=== PATIENT | female | born 1985 | race Caucasian/White ===

== ENCOUNTER 2017-04-25 19:41 | Emergency (ER) | payer OTHER ==
[2017-04-25 20:17] VITALS: BP 144/89
--- NOTE | 2017-04-25 20:57 | UC ---
Throat Pain/Nasal Felipe HPI - HPI Summary HPI Summary: TWO WEEKS OF SORE THROAT, SINUS CONGESTION, MILD TONGUE SWELLING. NO FEVER. - History of Current Complaint Chief Complaint: UCRespiratory Stated Complaint: sore throat Time Seen by Provider: 04/25/17 20:21 Hx Obtained From: Patient, Family/Skating [employer] Hx Last Menstrual Period: 03/31/17 Onset/Duration: Gradual Onset, Lasting Weeks, Still Present Severity: Mild Cough: None Associated Signs & Symptoms: Positive: Hoarseness, Sinus Discomfort, Nasal Discharge - Epiglottits Risk Factors Epiglottis Risk Factors: Negative - Allergies/Home Medications Allergies/Adverse Reactions: Allergies Allergy/AdvReac Type Severity Reaction Status Date / Time Penicillins Allergy Hives Verified 04/25/17 20:18 Sulfa Drugs Allergy severe Verified 04/25/17 20:18 vomiting, stomach pain Home Medications: Home Medications Venlafaxine TAB (NF) [Effexor TAB (NF)] 150 mg PO QAM 04/25/17 [History Confirmed 04/25/17] buPROPion TAB* [Wellbutrin TAB*] 150 mg PO QAM 04/25/17 [History Confirmed 04/25] PMH/Surg Hx/FS Hx/Imm Hx Previously Healthy: Yes Endocrine History Of: Denies: Diabetes Cardiovascular History Of: Denies: Cardiac Disorders Respiratory History Of: Reports: Asthma - PRN INHALER- UNKNOWN - Surgical History Surgical History: Yes Surgery Procedure, Year, and Place: C sections x 3; left great toe x 6. right inguinal hernia; left wrist 2010 and 2013 - Family History Known Family History: Positive: Hypertension - FATHER Negative: Diabetes - Social History Occupation: Employed Full-time Lives: With Family Alcohol Use: Occasionally Substance Use Type: None, Excessive Caffeine Smoking Status (MU): Heavy Every Day Tobacco Smoker Type: Cigarettes Amount Used/How Often: 1 PPD Length of Time of Smoking/Using Tobacco: 18 Years Have You Smoked in the Last Year: Yes Household Exposure Type: Cigarettes Cessation Counseling: Patient Advised to Stop - Immunization History Most Recent Influenza Vaccination: Not the 2013/2014 Review of Systems Constitutional: Negative Skin: Negative Eyes: Negative ENT: Sore Throat, Nasal Discharge Respiratory: Negative Cardiovascular: Negative Gastrointestinal: Negative Genitourinary: Negative Motor: Negative Neurovascular: Negative Musculoskeletal: Negative Neurological: Negative Psychological: Negative All Other Systems Reviewed And Are Negative: Yes Physical Exam Triage Information Reviewed: Yes Appearance: Well-Appearing, No Pain Distress, Well-Nourished Vital Signs: Initial Vital Signs Temp 98 F 04/25/17 20:09 Pulse 85 04/25/17 20:09 Resp 18 04/25/17 20:09 BP 144/89 04/25/17 20:09 Vital Signs Reviewed: Yes Eye Exam: Normal ENT: Positive: Hearing grossly normal, Pharyngeal erythema, Nasal congestion, TMs normal Dental Exam: Normal Neck exam: Normal Neck: Positive: Supple, Nontender, No Lymphadenopathy Respiratory Exam: Normal Respiratory: Positive: Chest non-tender, Lungs clear, Normal breath sounds, No respiratory distress, No accessory muscle use Cardiovascular Exam: Normal Cardiovascular: Positive: RRR, No Murmur, Pulses Normal, Brisk Capillary Refill Abdominal Exam: Normal Musculoskeletal Exam: Normal Neurological Exam: Normal Psychological Exam: Normal Skin Exam: Normal Throat Pain/Nasal Course/Dx - Differential Dx/Diagnosis Differential Diagnosis/HQI/PQRI: Pharyngitis, Sinusitis, Tonsillitis, URI Provider Diagnoses: RHINOSINUSITIS; PHARYNGITIS Discharge - Discharge Plan Condition: Stable Disposition: HOME Prescriptions: Fluticasone NASAL SPRAY 50MCG* [Flonase NASAL SPRAY 50MCG*] 2 spray BOTH NARES DAILY #1 btl Patient Education Materials: Pharyngitis (ED), Upper Respiratory Infection (ED) , Rhinosinusitis (ED) Referrals: Luisana Kaminski NP [Primary Care Provider] -
== END 2017-04-25 20:58 | disposition home or self-care (01) ==
LOC: UCCORT 19:41
DX: J32.9 Chronic sinusitis, unspecified (principal); F17.210 Nicotine dependence, cigarettes, uncomplicated; Z88.1 Allergy status to other antibiotic agents; Z88.2 Allergy status to sulfonamides
CPT/HCPCS: 87651; 99212; G0463

== ENCOUNTER 2019-06-27 11:33 | Emergency (ER) | payer OTHER ==
[2019-06-27 11:44] VITALS: BP 142/83
--- NOTE | 2019-06-27 12:13 | UC ---
Lower Extremity/Ankle HPI - HPI Summary HPI Summary: fell down the pool stairs yesterday hitting heel on every step---today unable to wb on left foot and pain in heel - History of Current Complaint Chief Complaint: UCLowerExtremity Stated Complaint: LEFT FOOT INJURY Time Seen by Provider: 06/27/19 12:07 Hx Obtained From: Patient Hx Last Menstrual Period: 06/14/19 ?: No Onset/Duration: Sudden Onset, Lasting Days - 1, Still Present Pain Intensity: 8 Pain Scale Used: 0-10 Numeric Aggravating Factor(s): Standing, Ambulation Alleviating Factor(s): Rest Able to Bear Weight: No - Allergies/Home Medications Allergies/Adverse Reactions: Allergies Allergy/AdvReac Type Severity Reaction Status Date / Time Penicillins Allergy Hives Verified 06/27/19 11:44 Sulfa (Sulfonamide Allergy Abdominal Verified 06/27/19 11:44 Antibiotics) Pain Home Medications: Home Medications Ibuprofen 800 mg PO 06/27/19 [History] PMH/Surg Hx/FS Hx/Imm Hx Previously Healthy: Yes - Surgical History Surgical History: Yes Surgery Procedure, Year, and Place: C sections x 3; left great toe x 6. right inguinal hernia; left wrist 2010 and 2013 - Family History Known Family History: Positive: Hypertension - FATHER Negative: Diabetes - Social History Occupation: Employed Full-time Lives: With Family Alcohol Use: Occasionally Substance Use Type: None Smoking Status (MU): Heavy Every Day Tobacco Smoker Type: Cigarettes Amount Used/How Often: 1 PPD Length of Time of Smoking/Using Tobacco: 18 Years Have You Smoked in the Last Year: Yes Household Exposure Type: Cigarettes - Immunization History Most Recent Influenza Vaccination: Not the Review of Systems All Other Systems Reviewed And Are Negative: Yes Constitutional: Positive: Negative Skin: Positive: Negative Eyes: Positive: Negative ENT: Positive: Negative Respiratory: Positive: Negative Cardiovascular: Positive: Negative Gastrointestinal: Positive: Negative Genitourinary: Positive: Negative Motor: Positive: Negative Neurovascular: Positive: Negative Musculoskeletal: Positive: Arthralgia - left heel Neurological: Positive: Negative Psychological: Positive: Negative Is Patient Immunocompromised?: No Physical Exam Triage Information Reviewed: Yes Appearance: Well-Appearing, Well-Nourished, Pain Distress - mild Vital Signs: Initial Vital Signs Temp 97.9 F 06/27/19 11:40 Pulse 88 06/27/19 11:40 Resp 18 06/27/19 11:40 BP 142/83 06/27/19 11:40 Pulse Ox 97 06/27/19 11:40 Vital Signs Reviewed: Yes Eye Exam: Normal Eyes: Positive: Conjunctiva Clear ENT Exam: Normal ENT: Positive: Normal ENT inspection, Hearing grossly normal. Negative: Trismus , Muffled voice, Hoarse voice Dental Exam: Normal Neck exam: Normal Neck: Positive: Supple, Nontender Respiratory Exam: Normal Respiratory: Positive: Chest non-tender, No respiratory distress, No accessory muscle use Cardiovascular Exam: Normal Cardiovascular: Positive: RRR, Pulses Normal, Brisk Capillary Refill Musculoskeletal Exam: Normal Musculoskeletal: Positive: Strength Intact, ROM Intact, No Edema Neurological Exam: Normal Neurological: Positive: Alert, Muscle Tone Normal Psychological Exam: Normal Skin Exam: Normal Diagnostics - Radiology No standard instances Radiology Interpretation Completed By: ED Physician, Radiologist - no fx Lower Extremity Course/Dx - Course Course Of Treatment: RICE, IBUPROFEN Follow with ortho if not resolved in 3-4 days - Differential Dx/Diagnosis Provider Diagnosis: Contusion of left heel, Hypertension, Nicotine dependence Discharge - Sign-Out/Discharge Documenting (check all that apply): Patient Departure All imaging exams completed and their final reports reviewed: Yes - Discharge Plan Condition: Stable Disposition: HOME Patient Education Materials: Foot Contusion (ED), R.I.C.E. Treatment (ED) Forms: *Work Release Referrals: Luisana Kaminski NP [Primary Care Provider] - 2 Weeks Nadir Low MD [Medical Doctor] - 4 Days - Billing Disposition and Condition Condition: STABLE Disposition: Home
== END 2019-06-27 13:29 | disposition home or self-care (01) ==
LOC: UCEAST 11:33
DX: S90.32XA Contusion of left foot, initial encounter (principal); W10.9XXA Fall (on) (from) unspecified stairs and steps, initial encounter; Y92.9 Unspecified place or not applicable; F17.210 Nicotine dependence, cigarettes, uncomplicated; Z88.0 Allergy status to penicillin; Z88.2 Allergy status to sulfonamides
CPT/HCPCS: 99212; G0463

== ENCOUNTER 2020-01-21 12:43 | Emergency (ER) | payer OTHER ==
--- OUTSIDE RECORDS SUMMARY | 2020-01-21 12:50 | XMS REPORT | Continuity of Care Document ---
:1985 External Reference #:[id number] Author Name Luisana Kaminski N.P. Address [address] [place] [id number] Problems Active Problems Provider Date Depressive disorder Luisana Kaminski N.PSarah Onset: 10/18/2015 Asthma Luisana Kaminski N.PSarah Onset: 10/18/2015 Anxiety Luisana Kaminski N.PSarah Onset: 12/13/2016 Tobacco user Luisana Kaminski N.Sathya Onset: 09/09/2017 Essential hypertension Luisana Kaminski N.PSarah Onset: 09/09/2017 Social History Type Date Description Comments Sex Unknown Tobacco Use Start: Unknown Heavy tobacco smoker (more than 10 cigarettes/day) ETOH Use Occasionally consumes alcohol Tobacco Use Start: Unknown Patient is a current smoker, smokes every day Smoking Status Reviewed: 08/12/18 Patient is a current smoker, smokes every day Allergies, Adverse Reactions, Alerts Active Allergies Reaction Severity Comments Date Penicillin 07/19/2014 Sulfa Drugs 07/19/2014 Medications Active Medications SIG Qnty Indications Ordering Provider Date Venlafaxine HCL 1 by mouth every 30tabs Luisana Kaminski, 12/10/2019 75mg day N.P. Tablets Work Note no work today Luisana Kaminski, 08/27/2019 for medical N.P. reasons Albuterol Sulfate HFA inhale two puffs 18units Luisana Kaminski, 2018 by mouth four N.P. 108(90Base) mcg/Act times a day as Aerosol needed Montelukast Sodium take one tablet 30tabs Luisana Kaminski, 12/19/2017 10mg by mouth every N.P. Tablets day in the evening Losartan Potassium 1 by mouth every 30tabs Luisana Kaminski, 11/27/2017 50mg day N.P. Tablets History Medications Zithromax Z-Ari as directed 1tabs Luisana Kaminski, 08/27/2019 - 250mg N.P. 12/09/2019 Tablets Medications Administered in Office Medication SIG Qnty Indications Ordering Provider Date PPD Luisana Kaminski, N.P. 09/23/2016 Injection Immunizations CPT Code Status Date Vaccine Lot # [id number] Given 10/06/2018 Influenza Vac, Quadrivalent, Split, 0.5mL Dosage, [id number] Im Use [id number] Given 09/09/2017 Influenza Vac, Quadrivalent, Split, 0.5mL Dosage, [id number] Im Use 54496 Given 09/09/2017 Influenza Vac, Quadrivalent, Split, 0.5mL Dosage, [id number] Im Use [id number] Given 09/23/2016 Influenza Vac, Quadrivalent, Split, 0.5mL Dosage, [id number] Im Use [id number] Refused 12/10/2019 Influenza Vac, Quadrivalent, Split, 0.5mL Dosage, Im Use [id number] Refused 12/26/2017 Pneumococcal 23 Immunization Adult Or Immunosuppressed Patient Vital Signs Date Vital Result Comment 12/10/2019 10:34am Body Temperature 98.1 F Weight 312.12 lb Heart Rate 95 /min BP Systolic 134 mmHg BP Diastolic 66 mmHg O2 % BldC Oximetry 97 % 08/27/2019 11:15am Body Temperature 98.4 F Weight 303.50 lb Heart Rate 85 /min BP Systolic 138 mmHg BP Diastolic 84 mmHg O2 % BldC Oximetry 98 % Results Description No Information Available Procedures Date Code Description Status 12/10/2019 73183 Admin Patient Focused Health Risk Assessment Instrument Completed Medical Devices Description No Information Available Encounters Type Date Location Provider Dx Diagnosis Office Visit 08/27/2019 Luisana Robb, J02.9 Acute pharyngitis, 11:30a N.P. unspecified J01.00 Acute maxillary sinusitis, unspecified Assessments Date Code Description Provider 12/10/2019 Z28.21 Immunization not carried out because of Luisana Kaminski, N.P. patient refusal 12/10/2019 F39 Unspecified mood [affective] disorder Luisana Kaminski, N.P. 12/10/2019 E66.9 Obesity, unspecified Luisana Kaminski N.P. 08/27/2019 J02.9 Acute pharyngitis, unspecified Luisana Kaminski N.PSarah 08/27/2019 J01.00 Acute maxillary sinusitis, unspecified Luisana Kaminski, N.Jose E. Plan of Treatment Future Appointment(s):12/31/2019 11:45 am - Luis[facility] N[facility]ath[id number] - Luisana Kaminski N.SathyaZ28.21 Immunization not carried out because of patient refusalComments:patient counseled about benefits of receiving flu vaccinedeclines at this time for non-specific [id number] Unspecified mood [ affective] disorderComments:strongly suggest counselingresume effexor as this has been helpful in pastreviewed potential SE and expected resultsf/u 2-3 weeks [id number] Obesity, unspecifiedComments:health risks of obesity discussed with pt. instructed to decrease caloric intake, aerobic exercise, start slow as discussedAllNew Medication:Venlafaxine HCL 75 mg - 1 by mouth every day Functional Status Description No Information Available Mental Status Description No Information Available Referrals Description No Information Available
[2020-01-21 12:58] VITALS: BP 165/97
--- NOTE | 2020-01-21 13:08 | UC ---
Abdominal Pain Female HPI - HPI Summary HPI Summary: Patient is a 34yo female A0 presenting with "nonstop spotting and cramping" for 2 months. Describes abnormal vaginal bleeding as "somtimes pink or brown colored discharge." Also notes thin, clear discharge at times. Patient states that prior to this she "has always had regular periods." States her normal period is heavy and lasts 3-5 days. Last normal period was "probably back in october." Patient states at home test negative last week. Patient states that she is not concerned for STIs but "should probably be tested anyway. " Denies pain with intercourse. Denies n/v. Denies fever and chills. Denies history of endometriosis, PCOS, and other gynecologic disorders. Does not currently have an OBGYN. - History of Current Complaint Chief Complaint: UCAbdominalPain Stated Complaint: LOWER ABDOMINAL Hx Obtained From: Patient Hx Last Menstrual Period: 11/29/19 Pain Intensity: 5 Pain Scale Used: 0-10 Numeric Allergies/Adverse Reactions: Allergies Allergy/AdvReac Type Severity Reaction Status Date / Time Penicillins Allergy Hives Verified 01/21/20 12:58 Sulfa (Sulfonamide Allergy Abdominal Verified 01/21/20 12:58 Antibiotics) Pain Home Medications: Home Medications NK [No Home Medications Reported] 01/21/20 [History Confirmed 01/21/20] PMH/Surg Hx/FS Hx/Imm Hx - Surgical History Surgical History: Yes Surgery Procedure, Year, and Place: C sections x 3; left great toe x 6. right inguinal hernia; left wrist 2010 and 2013 - Family History Known Family History: Positive: Hypertension - FATHER Negative: Diabetes - Social History Alcohol Use: Occasionally Substance Use Type: None Smoking Status (MU): Heavy Every Day Tobacco Smoker Type: Cigarettes Amount Used/How Often: 1 PPD Length of Time of Smoking/Using Tobacco: 18 Years Have You Smoked in the Last Year: Yes Household Exposure Type: Cigarettes - Immunization History Most Recent Influenza Vaccination: Not the Review of Systems All Other Systems Reviewed And Are Negative: Yes Constitutional: Positive: Negative Respiratory: Positive: Negative Cardiovascular: Positive: Negative Gastrointestinal: Positive: Abdominal Pain - lower abdominal cramping. Negative : Vomiting, Diarrhea, Nausea Genitourinary: Positive: Vaginal/Penile Discharge - pink/brown discharge, Abnormal Bleeding - "nonstop spotting". Negative: Dysuria, Hematuria, Frequency , Urgency Musculoskeletal: Positive: Negative Physical Exam - Summary Physical Exam Summary: Vital Signs Reviewed: Yes A+Ox3, no distress Eyes: Conjunctiva Clear ENT: Hearing grossly normal Neck: Positive: Supple Respiratory: Positive: No respiratory distress, No accessory muscle use + CTA throughout no w/r Cardiovascular: RRR nl s1, s2 no m/r CBT <2 sec Abd: soft + BS nt/nd no guarding Pelvic exam: normal external exam, no lesions, scant brown colored discharge, cervix normal, bimanual exam WNL, no cervical motion tenderness Musculoskeletal Exam: MOON x 4 without difficulty Neurological: Positive: Alert Psychological: Positive: age appropriate behavior Skin: Positive: no rash, no ecchymosis Vital Signs: Initial Vital Signs Temp 98.2 F 01/21/20 12:55 Pulse 75 01/21/20 12:55 Resp 15 01/21/20 12:55 BP 165/97 01/21/20 12:55 Pulse Ox 100 01/21/20 12:55 Lab Results 01/21/20 01/21/20 Range/Units 13:09 13:14 POC Urine Color Yellow POC Urine Clarity Clear POC Urine pH 6.0 (5-9) POC Ur Specif [place] 1.025 (1.010-1.030) POC Urine Protein Negative (Negative) POC Ur Glucose (UA) Negative (Negative) POC Urine Ketones Negative (Negative) POC Urine Blood 3+ A (Negative) POC Urine Nitrite Negative (Negative) POC Urine Bilirubin Negative (Negative) POC Urine Urobilinogen 0.2 (Negative) POC U Leukocyte Esteras Negative (Negative) POC Ur Test Negative (Negative) Abd Pain Female Course/Dx - Course Course Of Treatment: Negative Ua and urine . Pelvic exam performed with KIMI Delaney, at bedside. Pelvic exam WNL. Patient received affirm and gonorrhea/chlamydia testing. Informed her that she would be notified with any positive results warranting treatment. I educated patient on abnormal vaginal bleeding and possible causes. I instructed her to follow up with the OBGYN referral as soon as possible for further evaluation. Instructed to continue with symptomatic treatment until then. Patient voiced understanding and agreed with plan. - Differential Dx/Diagnosis Provider Diagnosis: Menstrual cramps, Abnormal vaginal bleeding in premenopausal patient Discharge ED - Sign-Out/Discharge Documenting (check all that apply): Patient Departure All imaging exams completed and their final reports reviewed: No Studies - Discharge Plan Condition: Stable Disposition: HOME Patient Education Materials: Dysfunctional Uterine Bleeding (ED), Dysmenorrhea (ED) Forms: *Work Release Referrals: Nataliia Velazquez MD [Medical Doctor] - As Soon As Possible Luisana Kaminski NP [Primary Care Provider] - Additional Instructions: You received testing for yeast, BV, trichomonas, gonorrhea, and chlamydia today. You will be notified only with any positive results that warrant treatment. Continue with motrin and apply heat for symptom relief. Follow up with the OBGYN referral listed below as soon as possible for further evaluation and treatment of your symptoms. - Billing Disposition and Condition Condition: STABLE Disposition: Home - Attestation Statements Provider Attestation: This patient was not seen by me. I was available for consult. Chart reviewed. AN
[2020-01-24 13:45] LABS: Chlamydia trachomatis NAA Negative (Negative); Neisseria gonorrhoeae (GC) NAA Negative (Negative)
[2020-01-24 13:55] LABS: Trichomonas vag NAA Female Negative (Negative)
== END 2020-01-21 13:45 | disposition home or self-care (01) ==
LOC: UCEAST 12:43
DX: N93.9 Abnormal uterine and vaginal bleeding, unspecified (principal); N94.6 Dysmenorrhea, unspecified; F17.210 Nicotine dependence, cigarettes, uncomplicated; Z88.0 Allergy status to penicillin; Z88.2 Allergy status to sulfonamides
CPT/HCPCS: 81003; 84702; 87480; 87491; 87510; 87591; 87661; 99212; G0463